=== PATIENT | male | born 1950 | race Caucasian/White ===

== ENCOUNTER 2022-04-09 14:41 | Emergency (ER) | payer OTHER ==
[2022-04-09] MEDS ORDERED: Bacitracin Oint 1 GM U/D Packet TOP ONE (16:04)
[2022-04-09] MEDS ORDERED: HYDROmorphone 1 MG/ML Syringe IM ONE (16:04)
== END 2022-04-09 16:46 | disposition home or self-care (01) ==
LOC: JP.ED 14:41
DX: S43.102A Unspecified dislocation of left acromioclavicular joint, initial encounter (principal); S50.312A Abrasion of left elbow, initial encounter; S60.812A Abrasion of left wrist, initial encounter; F17.210 Nicotine dependence, cigarettes, uncomplicated; Z88.5 Allergy status to narcotic agent; V29.9XXA Motorcycle rider (driver) (passenger) injured in unspecified traffic accident, initial encounter; Y93.55 Activity, bike riding
CPT/HCPCS: 71046; 73030; 96372; 99283; J1170

== ENCOUNTER 2022-04-27 12:13 | Emergency (ER) | payer OTHER | END 2022-04-27 14:35 | disposition home or self-care (01) | LOC: JP.ED 12:13 | DX: M54.2 Cervicalgia (principal); F17.210 Nicotine dependence, cigarettes, uncomplicated; Z91.048 Other nonmedicinal substance allergy status; Z88.5 Allergy status to narcotic agent | CPT/HCPCS: 99283 ==

== ENCOUNTER 2023-07-16 19:23 | Emergency (ER) | payer MEDICARE ==
[2023-07-16] MEDS ORDERED: Ketorolac 30 MG/ML SDV IVPUSH ONE (20:13)
== END 2023-07-16 21:01 | disposition home or self-care (01) ==
LOC: JP.ED 19:23
DX: S42.211A Unspecified displaced fracture of surgical neck of right humerus, initial encounter for closed fracture (principal); S00.81XA Abrasion of other part of head, initial encounter; F17.210 Nicotine dependence, cigarettes, uncomplicated; Z79.899 Other long term (current) drug therapy; Z91.048 Other nonmedicinal substance allergy status; Z88.5 Allergy status to narcotic agent; W18.30XA Fall on same level, unspecified, initial encounter
CPT/HCPCS: 73030-26-RT; 73030-RT; 96374; 99282; 99283-25; J1885

== ENCOUNTER 2024-05-02 07:54 | Emergency (ER) | payer OTHER, MEDICARE | END 2024-05-02 09:43 | disposition home or self-care (01) | LOC: JP.ED 07:54 | DX: R20.2 Paresthesia of skin (principal); R51.9 Headache, unspecified; K21.9 Gastro-esophageal reflux disease without esophagitis; F17.210 Nicotine dependence, cigarettes, uncomplicated; Z88.5 Allergy status to narcotic agent; Z88.8 Allergy status to other drugs, medicaments and biological substances; Z79.899 Other long term (current) drug therapy | CPT/HCPCS: 70450; 70450-26; 99283 ==